=== PATIENT | male | born 1945 | race Caucasian/White ===

== ENCOUNTER 2021-01-17 08:44 | Day surgery (SDC) | payer MEDICARE, BC ==
[~2021-01-17] VITALS: Ht 177.8 cm; Wt 100.3 kg
[~2021-01-17 08:44] MED LIST: FURO40 PO; METO25 PO; TAMS.4ER PO; TESTOSTERONE75 GM TOP; ZOCOR20 MG PO
--- NOTE | 2021-01-17 09:17 | NUR ---
History, Chart, Medications and Allergies reviewed before start of procedure. Patient confirms NPO status and agrees with scheduled surgery. Lungs clear T/O to Auscultation. NOZIN NASAL COLORIST FORMULATOR X3 USED TO CLEAN NARES BILAT.
--- NOTE | 2021-01-17 18:40 | NUR ---
SHIFT SUMMARY S/P RTKA. PT UNABLE TO WORK WITH THERAPY TODAY, SENSATION IS RETURNING PT WAS ABLE TO GET UP TO CHAIR AT THE END OF SHIFT. TOLERATING PO AT THIS TIME. AWAITING FIRST POST OP VOID. PT FEELS URGE AT THIS TIME. DRESSING CDI, PT DENIES PAIN STILL. PLAN IS FOR THERAPY IN THE AM AND DISCHARGE.
--- NOTE | 2021-01-17 19:18 | NUR ---
BLADDER SCANNED PT AT 425 AFTER PT ATTEMPTED TO VOID. ONCOMING RN TO STRAIGHT CATH PER PROTOCOL. PT RECEPTIVE AND UNDERSTANDING OF NEED.
--- NOTE | 2021-01-17 20:51 | NUR ---
STRAIGHT CATH STRAIGHT CATH DUE TO RETENTION POST SURGICAL, URINE OUTPUT AT 425ML. PT TOLERATED STRAIGHT CATH INSERTED WELL. URINE DARK YELLOW MILD CLOUDY.
[2021-01-18 04:34] LABS: BASOPHILS ABSOLUTE AUTO 0.02 K/mm3 (0.00-0.23); BASOPHILS PERCENT AUTO 0 % (0-2); EOSINOPHILS ABSOLUTE AUTO 0.01 K/mm3 (0.00-0.68); EOSINOPHILS PERCENT AUTO 0 % (0-6); Hemoglobin 14.2 g/dL (13.5-17.5); IMMATURE GRAN ABSOLUTE AUTO 0.04 K/mm3 (0.00-0.10); IMMATURE GRAN PERCENT AUTO 0 % (0-1); LYMPHOCYTES ABSOLUTE AUTO 1.35 K/mm3 (0.84-5.20); LYMPHOCYTES PERCENT AUTO 10 % (21-46); MONOCYTES PERCENT AUTO 7 % (4-13); Mean Corpuscular HGB 31.9 pg (26.0-34.0); Mean Corpuscular HGB Conc 34.6 g/dL (31.5-36.5); Mean Corpuscular Volume 92 fL (80-100); Mean Platelet Volume 9.7 fL (9.1-12.4); NEUTROPHILS ABSOLUTE AUTO 11.46 K/mm3 (1.96-9.15); NEUTROPHILS PERCENT AUTO 83 % (41-73); Platelet Count 249 K/mm3 (150-400); RDW Coefficient Variation 12.9 % (11.7-14.2); RDW Standard Deviation 43.8 fL (35.1-46.3); Red Blood Cell Count 4.45 M/mm3 (4.30-5.90); White Blood Cell Count 13.78 K/mm3 (4.00-11.30)
--- NOTE | 2021-01-18 04:50 | NUR ---
SHIFT SUMMARY POD1 TOTAL KNEE, AQUACEL AND ALEX IN PLACE, C/D/I. POLAR PACK APPLIED. TOLERATING PO INTAKE. PAIN MANAGED WITH PO PAIN MEDICATIONS. PT AMBULATING IN HALLWAYS. PT STRAIGHT CATHED AT BEGINING OF SHIFT DUE TO NOT BEING ABLE TO VOID. BLADDER SCANNED AGAIN AT APPROX 0445, 557ML IN BLADDER, PT ABLE TO VOID 50ML AFTER WALKING IN THE HALLWAY. REQUESTED THAT WE DO A STRAIGHT CATH AND PT DECLINED DUE TO PREVIOUS CATH RELATED INFECTION, REQUESTS TO CONTINUE TO AMBULATE AND BELIEVES THAT HE WILL MAKE PROGRESS WITH MORE MOVEMEMENT. WILL CONTINUE TO MONITOR AND ENCOURAGE PT TO VOID. WILL REPORT TO ONCOMING RN.
[2021-01-18 05:10] LABS: Bun/Creatinine Ratio 15.8 (12.0-20.0); Calcium, Blood 8.5 mg/dL (8.5-10.1); Creatinine, Blood 1.77 mg/dL (0.60-1.20); Potassium, Blood 4.4 mmol/L (3.5-5.5)
[2021-01-18] MEDS ORDERED: ASPIR 8181 MG PO (07:24)
[2021-01-18] MEDS ORDERED: Percocet 5-3251 EACH PO (07:25)
--- NOTE | 2021-01-18 07:56 | NUR ---
OOB TO CHAIR, REPORTS AMBULATING WITH WALKER W/ MINIMAL DIFFICULTY, REPORTS VOIDING MORE AND VOIDING IS BACK TO HIS BASELINE OF VOIDING, DENIES ANY NEED FOR PAIN MEDS AT THIS TIME, CONT. TO MONITOR FOR ANY CHANGES.
== END 2021-01-18 11:51 | disposition home or self-care (01) ==
LOC: ORSCMMR 08:44 → ORD 10:00 → SURS 12:23 → ORSCMMR 01-18 11:51
PROVIDERS: Orthopaedic Surgery
PROC: 8E0Y0CZ Robotic Assisted Procedure of Lower Extremity, Open Approach (ICD-10-PCS; principal; 2021-01-17 10:00)
PROC: 0SRC0JA Replacement of Right Knee Joint with Synthetic Substitute, Uncemented, Open Approach (ICD-10-PCS; principal; 2021-01-17 10:00)
DX: M17.11 Unilateral primary osteoarthritis, right knee (principal); I10 Essential (primary) hypertension; N18.9 Chronic kidney disease, unspecified; Z79.899 Other long term (current) drug therapy
CPT/HCPCS: 27447; S2900; 36415; 73560-RT; 80048; 85025; 90686; 97110; 97116-CQ; 97162; A9270; C1776; G0008; J0171; J0690; J0735; J1100; J1885; J2250; J2370; J2405; J2704; J2795; J3010; J7120